=== PATIENT | male | born 1945 | race Caucasian/White ===

== ENCOUNTER 2025-07-13 08:32 | Outpatient (CLI) | payer MEDICARE, BC, SELFPAY ==
--- NOTE | ~2025-07-13 | MR_ITS ---
MRI of the lumbar spine Clinical History: Spinal stenosis Technique: Axial T2-weighted images, and sagittal T1-weighted, T2-weighted, and T2 fat-sat images wer e acquired. Findings: No fracture identified. There is 4 mm anterolisthesis of L4 over L5. No suspicious bone mar row signal abnormality seen. At L1-L2, there is disc desiccation without disc bulge or herniation. No spinal canal stenosis or sofi ral foraminal narrowing. At L2-L3, there is mild disc bulge with moderate facet arthropathy. No central canal stenosis. There is moderate to advanced right neural foraminal narrowing. There is mild left neural foraminal narrowi ng. At L3-L4, there is severe degenerative disc narrowing. There is diffuse disc bulge with moderate face t arthropathy. No central canal stenosis. There is severe right neural foraminal narrowing, and mild left neural foraminal narrowing. At L4-L5, there is degenerative disc narrowing with diffuse disc bulge and severe facet arthropathy. There is minimal central canal stenosis. There is advanced bilateral neural foraminal narrowing. At L5-S1, there is disc bulge with moderate facet arthropathy. No central canal stenosis. There is mi ld to moderate left neural foraminal narrowing. Right neural foramen preserved. Paravertebral soft tissues are unremarkable. Impression: Moderate to advanced degenerative spondylosis, as detailed above, worst at L3-L4 and L4-L5. Reviewed, dictated and finalized at [facility]. Impression: Moderate to advanced degenerative spondylosis, as detailed above, worst at L3-L 4 and L4-L5.
== END 2025-07-13 08:33 | disposition home or self-care (01) ==
PROVIDERS: Visit Provider Anesthesiology Pain Medicine
DX: M48.062 Spinal stenosis, lumbar region with neurogenic claudication (principal); G25.81 Restless legs syndrome; R20.2 Paresthesia of skin; M47.896 Other spondylosis, lumbar region
CPT/HCPCS: 72148

== ENCOUNTER 2025-08-27 01:24 | Day surgery (SDC) | payer MEDICARE, SELFPAY ==
[2025-08-21 15:14] VITALS: BMI 27.3
--- NOTE | 2025-08-21 15:29 | PC.NURSE ---
[facility] has started construction of its new state of the art ER which will open Spring 2026. With this, we anticipate parking may be a challenge for some our surgical patients and families. Parking spaces are limited but are available for all Surgical, obstetrics, and ER patients sharing this lot. If you arrive and find you are having a hard time finding a parking space, please note that we understand the challenges, please drive around the hospital and park near Hospital Entrance 1. When you enter this entrance, you can ask a volunteer to direct or take you back to the surgical waiting area to check in. We appreciate everyone?s understanding of these expected challenges while we build for your future. Report to the Outpatient Waiting Room, entrance under the green pavilion located off [address], at time __1:30pm on date _08/27/25 . Planned Procedure Time: __2:30pm .? Time changes happen often and if your time is changed the preop area will call you the afternoon before. - You and your visitor will be asked to self-screen and do not enter if you have any COVID symptoms. Please call surgeon if you need to reschedule. - A mask is optional within the hospital at this time. Patients may Breakfast/Light lunch w liquids will 12:30pm then nothing except a sip of water w meds if needed till post op. - No smoking, or chewing tobacco (or any form of nicotine). No chewing gum, candy or mints. Take only the following medications with a SIP of water on the morning of surgery: ____AM MEDS DO NOT STOP ANY OF YOUR OTHER PRESCRIPTION MEDICATIONS PRIOR TO SURGERY EXCEPT THE FOLLOWING Hold all vitamins and supplements for 3 days per anesthesiologist. Medications to discontinue per physician NONE Date to take last dose NONE Please no make-up, nail namibian, hairspray, perfume, deodorant, or body powder the day of surgery.? No jewelry (including any body piercings) or valuables the day of surgery, leave them at home.? Please take a shower or bath the night before, or the morning of, surgery with an antibacterial soap.? Wear comfortable, loose fitting clothing.? - Jewelry must be removed prior to entering the operating room.? Rings and piercings that are not removed may be cut off. - The hospital will not accept responsibility for valuables.? - Please leave all valuables, including medications, at home the day of surgery. If you are going home after surgery, a licensed public transit trolley driver must drive you home.? - NO public transportation without another adult if you receive anesthesia. - We recommend that an adult stay with you for 24 hours following discharge. - We also recommend that you do not drive, make important decision, drink alcoholic beverages, or take any drugs that were not prescribed by your health care provider for at least 24 hours after your discharge time. NO DRIVING FOR [address] FERGUSON post op Follow any additional instructions given to you from your surgeon. Telephone instructions given to ___Patient and asked if any additional questions and then verbalized understanding. Patient advised to call surgeon office or pre surgery nurse liaison [phone] if any additional questions.
--- NOTE | ~2025-08-27 | XR_ITS ---
EXAMINATION: XR fluoroscopy no charge DATE: 08/27/2025 14:28 INDICATION: Therapeutic transforaminal epidural steroid injection TECHNIQUE: 138 fluoroscopic images of the lumbar spine were obtained during procedure performed by Dr. Alford. Radiologist was not present for the imaging or procedure. The amount of fluoroscopy time used during this procedure was 1.2 minutes. Total DAP was 5.65 Gycm^2. COMPARISON: None. FINDINGS: Images demonstrate needle tips advanced to the superior aspect of the bilateral L3-L4 and L4-L5 neural foramina with small amount of injected contrast evident intravascular extension of contrast. IMPRESSION: 1. Fluoroscopy utilized during pain management procedure with advanced to the bilateral L3-L4 and L4-L5 neural foramina. See procedure note for further detail. Reviewed, dictated and finalized at location A. IMPRESSION: 1. Fluoroscopy utilized during pain management procedure with advanced to the b ilateral L3-L4 and L4-L5 neural foramina. See procedure note for further detail .
--- NOTE | 2025-08-27 13:27 | PM.HPGS ---
History of Present Illness History of Present Illness Consent: Risks, benefits, and alternatives have been discussed and questions answered. Patient agrees to proceed with procedure. Chief complaint: spinal stenosis lumbar region w/neuro claudication Narrative: Ryan Yarbrough is a 79 year old male with chronic, recalcitrant and disabling low back and lower extremity pain secondary to lumbosacral radiculopathy with failure to respond to aggressive conservative measures including PT, oral and topical analgesics, opioid and nonopioid analgesics, rest, time and activity/behavioral modification over the past 6-12 months who presents for bilateral lumbar transforaminal epidural steroid injection at L4-5, L3-4 under fluoroscopic guidance and with contrast control. Review of Systems Review of Systems: Patient denies any new infectious, allergic, cardiopulmonary, neurologic or constitutional symptoms or changes in activity tolerance or exercise capacity including new or progressive SOB/HERNANDEZ, peripheral edema, productive cough, dysuria, nausea/vomiting, diarrhea, weight change, fevers/chills/night sweats, new or progressive neurologic deficit, cognitive or mood changes since last seen, except as documented in the HPI. All systems reviewed & are unremarkable except as noted in HPI and below PMFSH Past Medical History Medical History HTN (hypertension) COPD (chronic obstructive pulmonary disease) Surgical History Surgical History Hx of appendectomy H/O shoulder surgery H/O knee surgery Bilateral Family History Family History Father Cancer Mother Hypertension Social History Social History (Updated 07/23/25 @ 08:46 by Keri Alanis MA) Smoking status: Former smoker Tobacco type: cigarettes Second hand tobacco smoke exposure: No Smoking end date: 12/28/24 Alcohol intake: current Drinks per week: 5 Substance use: never Do You Feel Safe in your Home?: No Lack of Transportation: No Lack of Food: Never True Current Housing: I Have Housing Concerned About Future Housing: No Difficulty Paying Gas/Electric Bills: No Difficulty Paying for Meds: No Currently Unemployed: No Difficulty w/ Childcare or Family Care: No Meds Home Medications and Allergies Home Medications ?Medication ?Instructions ?Recorded ?Confirmed ?Type amlodipine 10 mg tablet 10 mg PO DAILY 06/04/25 08/21/25 History atenolol 25 mg tablet 25 mg PO DAILY 06/04/25 08/21/25 History losartan 50 mg tablet 50 mg PO DAILY 06/04/25 08/21/25 History rosuvastatin 10 mg tablet 10 mg PO .am 06/04/25 08/21/25 History Allergies Allergy/AdvReac Type Severity Reaction Status Date / Time lisinopril Allergy Mild Hives Verified 08/21/25 15:11 Exam Narrative: The patient's physical exam is essentially unchanged from prior examination on 07/23/25. Specifically, patient demonstrates normal lung capacity, tidal volume and respiratory rate without wheezes, crackles, rales or rubs. Heart rate and rhythm are regular without murmurs, gallops or rubs. No JVD. Pulses 2+ globally without increasing peripheral edema. AAOx3 with no evidence of confusion, intoxication or altered mental state, NC/AT without acute distress or altered consciousness. Speech, cognition, mood, insight and judgment at baseline and within normal limits. Assessment and Plan Assessment and plan (1) Spinal stenosis, lumbar region with neurogenic claudication: Code(s): M48.062 - Spinal stenosis, lumbar region with neurogenic claudication Status: Acute (2) Lumbosacral radiculopathy: Code(s): M54.17 - Radiculopathy, lumbosacral region Status: Acute Assessment and Plan: proceed as planned with bilateral lumbar transforaminal epidural steroid injection at L4-5, L3-4 under fluoroscopic guidance and with contrast control.
--- NOTE | 2025-08-27 13:30 | WPDHPUPDATE1 ---
History and Physical Update Update Date/Time: 08/27/25 13:30 History and Physical has been reviewed, including an updated exam of the patient. There are NO changes in the patient's condition. Risks, benefits, and alternatives have been discussed and questions answered. Patient agrees to proceed with procedure.
--- NOTE | 2025-08-27 13:31 | WPDHPUPDATE1 ---
History and Physical Update Update Date/Time: 08/27/25 13:31 History and Physical has been reviewed, including an updated exam of the patient. There are NO changes in the patient's condition. Risks, benefits, and alternatives have been discussed and questions answered. Patient agrees to proceed with procedure.
--- NOTE | 2025-08-27 13:33 | W.PM.PROC2 ---
Procedure Note - Detailed Date of Procedure 08/27/25 Pre-op Diagnosis spinal stenosis lumbar region w/neuro claudication. lumbar radiculopathy Post-op Diagnosis Same Procedure Performed Bilateral Lumbar Transforaminal Epidural Steroid Injection under Fluoroscopic Guidance and with Contrast Control at L3-4, L4-5. Surgeon Levy Alford MD Anesthesia Local Description of Procedure INFORMED CONSENT: Risks, benefits and alternatives to the procedure were discussed in detail with the patient who expressed explicit understanding and consent to proceed. Patient was informed verbally and in written form regarding the risks associated with the procedure including the low risk of serious infection, bleeding/bruising, allergic reaction, nerve or organ injury, paralysis, procedural site pain or discomfort, worsening pain and/or mobility, failure to treat and/or disfigurement. The patient expressed explicit understanding and consent to proceed. All materials required for the procedure were available prior to procedure start. Site and side was marked prior to procedure and confirmed in the presence of the patient. PROCEDURE IN DETAIL: The patient was brought to the procedural suite and placed in the prone position. Patient was made comfortable with use of pillows under the head/chest, hips and ankles. Skin overlying the injection site was prepared broadly with ChloraPrep applicator and draped in a sterile manner. Aseptic technique was employed throughout. The endplates of the vertebral body at the site of interest were aligned in the AP view. Ipsilateral oblique angulation was utilized to better visualize the neuroforamen of interest. Local anesthesia was established by infiltration with approximately 5 mL of 0.5% PF lidocaine via a 1-1/2 inch 27-gauge needle. A 22-gauge 3.5 inch Dia (pencil point) spinal needle was advanced until the needle approached the 6 o'clock position on the pedicle just superior to the exiting nerve root. on the right at L4-5. Lateral view was utilized to confirm appropriate position of the needle tip within the superior and posterior portion of the respective foramen. In an AP view, 1 mL of Omnipaque 300 contrast medium was injected after negative aspiration for CSF, blood or other bodily fluid, showing appropriate neurogram without evidence of intravascular or intrathecal spread of contrast. Digital subtraction imaging was used with an additional 1ml of the same contrast medium to confirm absence of intravascular contrast spread. A 1mL solution containing 3 mg of betamethasone was injected after negative repeat aspiration. Appropriate spread of the injectate was confirmed with washout of previously injected contrast. No parasthesias were elicited. Needle was removed completely intact without difficulty. The same exact procedure was repeated for all remaining levels on the ipsilateral side, right L3-4 neuroforamen, modified as necessary to accommodate for the new target location with identical findings and results and no evidence of complication. The same exact procedure was repeated for all remaining levels on the contralateral side, left L3-4, L4-5 neuroforamen, modified as necessary to accommodate for the new target location with identical findings and results and no evidence of complication. Images were saved and documented in the patient chart. Patient's skin was cleaned and sterile bandage applied. The patient tolerated the procedure well. The patient was transported to the recovery area in stable condition where they were observed for an appropriate amount of time prior to discharge, without evidence of complication. The patient was instructed to avoid excessive activity for the next 48 hours, including climbing and frequent use of stairs. Showers only for 48 hours. They were instructed not to drive or operate heavy machinery for 24 hours. They are to monitor for severe headaches, fevers, chills, night sweats, erythema/swelling at the site or any other signs of infection, bleeding/bruising, bowel or bladder changes as well as new pain, weakness or numbness in the upper or lower extremity. Should they notice these changes, they are instructed to call our office immediately or report directly to the nearest Emergency Department if no answer or if after posted office hours. COMPLICATIONS: None COMMENTS: None CONTRAST WASTED: 22 mL Omnipaque 300. STEROID WASTED: 0 mg of betamethasone. Complications No immediate complications Condition Stable Disposition Same day [facility] Billing Surgery - Charge Forward: Surgery Billing
[2025-08-27 13:40] VITALS: BP 112/77; PULSE 84; RESP 20; TEMP 36.3; O2SAT 99
[2025-08-27 14:10] VITALS: BP 146/68; PULSE 54; RESP 16; O2SAT 96
[2025-08-27] MEDS: DEXAMETHASONE SODIUM PHOSP/PF 10 MG/ML 1 ML VIAL INFILTRATE (14:13)
[2025-08-27] MEDS: LIDOCAINE 2% PF LOCAL INJ 5 ML VIAL 3 ML INFILTRATE (14:14)
[2025-08-27] MEDS: LIDOCAINE 1% PF INJ 5 ML VIAL 3 ML INFILTRATE (14:15)
[2025-08-27 14:24] VITALS: BP 132/62; PULSE 56; RESP 16; O2SAT 96
[2025-08-27 14:28] VITALS: BP 128/60; PULSE 50; RESP 20
== END 2025-08-27 14:45 | disposition home or self-care (01) ==
PROVIDERS: Visit Provider Anesthesiology Pain Medicine
PROC: (CPT 64483; principal; 2025-08-27 14:30)
DX: M48.062 Spinal stenosis, lumbar region with neurogenic claudication (principal); I10 Essential (primary) hypertension; J44.9 Chronic obstructive pulmonary disease, unspecified; Z98.890 Other specified postprocedural states; Z87.891 Personal history of nicotine dependence; Z80.9 Family history of malignant neoplasm, unspecified
CPT/HCPCS: 64483; 64484 ×2; 99199; J2003; Q9965